=== PATIENT | female | born 1990 | race Two or more races ===

== ENCOUNTER 2022-02-19 07:01 | Emergency (ER) | payer MEDICAID ==
[~2022-02-19] VITALS: Ht 160 cm; Wt 82.0 kg
[2022-02-19] MEDS ORDERED: ONDANSETRON ODT 4 MG TAB PO ONE (09:00)
[2022-02-19] MEDS ORDERED: diphenhdrAMINE HCL 50 MG/1 ML VL IM ONE (09:00)
[2022-02-19] MEDS ORDERED: HYDR50CA PO (09:38)
[2022-02-19 09:59] VITALS: BP 136/64
== END 2022-02-19 09:52 | disposition home or self-care (01) ==
LOC: ER 07:01
DX: F10.980 Alcohol use, unspecified with alcohol-induced anxiety disorder (principal); Y90.9 Presence of alcohol in blood, level not specified
CPT/HCPCS: 93005; 96372; 99283; J1200; Q0162